=== PATIENT | male | born 1955 | race Caucasian/White ===

== ENCOUNTER 2018-03-31 09:00 | Inpatient (IN) | payer OTHER ==
[2018-04-07 10:46] LABS: PLATELET COUNT 275 10^3/uL (150-400)
--- NOTE | 2018-04-13 18:56 | GHP ---
DATE OF ADMISSION: 04/14/2018 HISTORY OF PRESENT ILLNESS: The patient is a 62-year-old male who presents with right knee pain, mal alignment, and instability. He has a history of a right ACL reconstruction back in 1988. Progressiv mk, his knee is feeling unstable, presents with more valgus alignment, and is giving out. He has la teral knee pain. His x-ray shows severe right knee tricompartment osteoarthritis, rhvv-uv-niss in th e lateral compartment, producing increased valgus alignment. He has 2 pieces of retained hardware in his right proximal tibia, a staple and a screw. For his combination of significant symptoms, includ ing his severe valgus malalignment with his arthritis, a right total knee arthroplasty is planned. PAST MEDICAL HISTORY: Remarkable for hypertension as well as elevation of cholesterol. His surgerie s include his right knee ACL reconstruction, left knee meniscal work. He had back surgery, a disk, b ack in 1991. He has had an esophageal dilatation. MEDS: Atorvastatin 10 mg p.o. daily, Bystolic 10 mg p.o. daily, ramipril 5 mg p.o. daily, and he use s supplements. SOCIAL HISTORY: He is a former smoker, but quit years ago. ALLERGIES: No known drug allergies. REVIEW OF SYSTEMS: Positive from a cardiac standpoint for elevation of cholesterol and hypertension. PHYSICAL EXAM: GENERAL: The patient is a well-developed, well-nourished male in no apparent distres s. HEAD AND NECK: Normocephalic, atraumatic. CHEST: Clear. CARDIOVASCULAR: Regular rate and rhy thm. ABDOMEN: Soft. NEUROLOGICAL: He is alert and oriented x3. EXTREMITIES: Examination of the right knee shows 10 degrees of increased valgus alignment, a moderate effusion. Positive Marshal carissa t. Mild pivot shift. No posterior sag. Positive anterior drawer. IMAGING: X-rays as described, show right knee severe tricompartment osteoarthritis, most severe in t he lateral compartment, which is bone to bone. There is decreased joint space, degenerative lipping, and subchondral sclerosis. IMPRESSION: Right knee tricompartment osteoarthritis with valgus malalignment. PLAN: Right total knee arthroplasty. Benefits and risks of surgery were reviewed with the patient. He understands that the risks include infection, damage to blood vessels and nerves, failure or loos ening of components, need for revision, blood clot in the leg or lungs, or bleeding and the need for transfusion. He has signed his consent form and wishes to proceed. /[id number]/MODL
[2018-04-14] MEDS ORDERED: ceFAZolin 1 GM/5 ML SYR ONE (08:08)
[2018-04-14] MEDS ORDERED: ceFAZolin 2 GM/DEXTROSE 100 ML IV ONE (08:29)
[2018-04-14] MEDS ORDERED: GABAPENTIN 300 MG CAP PO ONE (08:29)
[2018-04-14] MEDS ORDERED: ONDANSETRON 4 MG/2 ML VIAL IVP ONE (08:29)
[2018-04-14] MEDS ORDERED: DEXAMETHASONE 4 MG/ML VIAL IVP ONE (08:29)
[2018-04-14] MEDS ORDERED: ACETAMINOPHEN 325 MG TAB PO ONE (08:29)
[2018-04-14] MEDS ORDERED: FAMOTIDINE 20 MG TAB PO ONE (08:29)
[2018-04-14] MEDS ORDERED: LR 1,000 ML IV ONE (08:30)
[2018-04-14] MEDS ORDERED: LIDOCAINE 1% 2 ML INJ ID PRN (08:30)
--- NOTE | 2018-04-14 08:51 | PDANEPAE ---
ANE Past Medical History - Cardiovascular History Hx Hypertension: Yes Hx Arrhythmias: No Hx Chest Pain: No Hx Coronary Artery / Peripheral Vascular Disease: Yes Hx CHF / Valvular Disease: No Hx Palpitations: No Cardiovascular History Comment: CAD based on calcium score, no EKG within the past 2 years - Pulmonary History Hx COPD: No Hx Asthma/Reactive Airway Disease: No Hx Recent Upper Respiratory Infection: No Hx Oxygen in Use at Home: No Hx Sleep Apnea: No Sleep Apnea Screening Result - Last Documented: Positive Pulmonary History Comment: JABARI triggers - Neurologic History Hx Cerebrovascular Accident: No Hx Seizures: No Hx Dementia: No - Endocrine History Hx Diabetes: No - Renal History Hx Renal Disorders: No - Liver History Hx Hepatic Disorders: No - Neurological & Psychiatric Hx Hx Neurological and Psychiatric Disorders: No - Cancer History Hx Cancer: No - Congenital Disorder History Hx Congenital Disorders: No - GI History Hx Gastrointestinal Disorders: Yes Gastrointestinal History Comment: reflux. hx esophageal dillitation - Other Health History Other Health History: wears glasses. plantar fascititis - Chronic Pain History Chronic Pain: No - Surgical History Prior Surgeries: right knee rebuilt from ski injury. left scope. back surgery ANE Review of Systems Review of Systems: - Exercise capacity Exercise capacity: >=4 METS METS (RN): 4 METS ANE Patient History - Allergies Allergies/Adverse Reactions: No Known Allergies Allergy (Verified 03/28/18 10:12) - Home Medications Home medications: home medication list seen and reviewed Home Medications: Aspirin [Aspirin 81mg (*)] 81 mg PO HS 03/28/18 [Last Taken 04/07/18] Atorvastatin Calcium [Lipitor 10 mg (*)] 10 mg PO DAILY 03/28/18 [Last Taken 07/28 07:00] Cholecalciferol Vit D3 [Vitamin D3 (*)] 1,000 units PO DAILY 03/28/18 [Last Taken 04/07/18] Herbals/Supplements -Info Only 1 ea PO DAILY 03/28/18 [Last Taken 04/07/18] Nebivolol HCl [Bystolic] 10 mg PO DAILY 03/28/18 [Last Taken 04/14/18 07:00] Niacin [Niacin 500 mg (*)] 500 mg PO HS 03/28/18 [Last Taken 04/07/18] [place]-3 Fatty Acids [Fish Oil 1000 mg (*)] 1,000 mg PO DAILY 03/28/18 [Last Taken 04/07/18] Ramipril [Altace 5mg (*)] 10 mg PO DAILY 03/28/18 [Last Taken 04/13/18 07:00] - NPO status NPO Status: no food or drink >8 hours - Smoking Hx Smoking Status: Former smoker - Family Anes Hx Family Hx Anesthesia Complications: none ANE Labs/Vital Signs - Labs Result Diagrams: 04/07/18 10:06 - Vital Signs Vital Signs: reviewed preoperatively; see RN documention for details Height: 193.04 cm Weight: 89.811 kg ANE Physical Exam - ASA Status ASA Status: II ANE Anesthesia Plan Anesthesia Plan: general endotracheal anesthesia Regional Anesthesia: single shot NB
[2018-04-14] MEDS ORDERED: MIDAZOLAM 2 MG/2 ML VIAL IVP ONE (09:03)
--- NOTE | 2018-04-14 09:47 | PDHPUP ---
History & Physical Update H&P update statement: This history and physical update is based on an assessment of the patient which was completed after admission or registration (within 24 hours), but prior to the surgery/procedure. no change H&P update: no change in patient's condition since H&P completed (no change)
[2018-04-14] MEDS ORDERED: BUPIVACAINE/DEXTROSE 7.5MG/ML 2 ML SPINAL AMP SP ONE (09:50)
[2018-04-14] MEDS ORDERED: PROPOFOL/EMULSION 500 MG/50 ML BOTTLE IV ONE ×4 (09:50→11:38)
[2018-04-14] MEDS ORDERED: TRANEXAMIC ACID 1,000 MG in NS 100 ML IV ONE (10:45)
[2018-04-14] MEDS ORDERED: ePHEDrine SULFATE 25 MG/5 ML SYR ONE (10:45)
[2018-04-14] MEDS ORDERED: ROPIVACAINE 0.2% 80 MG, EPINEPHrine 0.2 MG, KETOROLAC TROMETHAMINE 30 MG in SYRINGE 0 ML IU ONE (10:45)
[2018-04-14] MEDS ORDERED: PHENYLEPHRINE HCL 100 MCG/ML SYR ONE ×2 (10:51→11:10)
[2018-04-14] MEDS ORDERED: POVIDONE-IODINE 20 ML in SODIUM CL IRRIG SOLUTION 500 ML IRR ONE (11:00)
[2018-04-14] MEDS ORDERED: ROPIVACAINE HCL 150 MG/30 ML INJ ONE (11:05)
[2018-04-14] MEDS ORDERED: ACETAMINOPHEN 500 MG TAB PO PRN (11:39)
[2018-04-14] MEDS ORDERED: HYDROmorphONE/DILAUDID 2 MG/ML INJ IVP PRN (11:39)
[2018-04-14] MEDS ORDERED: DEXAMETHASONE 4 MG/ML VIAL IVP PRN (11:39)
[2018-04-14] MEDS ORDERED: ALBUTEROL 3 ML DEYVIAL IH PRN (11:39)
[2018-04-14] MEDS ORDERED: ONDANSETRON 4 MG/2 ML VIAL IVP PRN ×2 (11:39→12:44)
[2018-04-14] MEDS ORDERED: NALOXONE HCL 0.4 MG/ML INJ IVP PRN (11:39)
[2018-04-14] MEDS ORDERED: LR 500 ML IV PRN (11:39)
[2018-04-14] MEDS ORDERED: PROMETHAZINE HCL 25 MG/ML INJ IVP PRN ×2 (11:39→12:44)
[2018-04-14] MEDS ORDERED: PHENYLEPHRINE HCL 100 MCG/ML SYR IVP PRN (11:39)
[2018-04-14] MEDS ORDERED: oxyCODONE IR 5 MG TAB PO PRN (11:39)
[2018-04-14] MEDS ORDERED: fentaNYL 100 MCG/2 ML INJ IVP PRN (11:39)
[2018-04-14] MEDS ORDERED: LABETALOL HCL 20 MG/4 ML INJ IVP PRN (11:39)
[2018-04-14] MEDS ORDERED: METOCLOPRAMIDE 10 MG/2 ML VIAL IVP PRN ×2 (11:39→12:44)
[2018-04-14] MEDS ORDERED: TEMAZEPAM 15 MG CAP PO PRN (12:44)
[2018-04-14] MEDS ORDERED: DIPHENOXYLATE/ATROPINE LOMOTIL 1 TAB PO PRN (12:44)
[2018-04-14] MEDS ORDERED: POLYETHYLENE GLYCOL 3350 17 GM PKT PO PRN (12:44)
[2018-04-14] MEDS ORDERED: LACTULOSE 20 GM/30 ML UDCUP PO PRN (12:44)
[2018-04-14] MEDS ORDERED: DIAZEPAM 5 MG TAB PO PRN (12:44)
[2018-04-14] MEDS ORDERED: ONDANSETRON DISINTEGRATING 4 MG TAB PO PRN (12:44)
[2018-04-14] MEDS ORDERED: MAGNESIUM HYDROXIDE 30 ML UDCUP PO PRN (12:44)
[2018-04-14] MEDS ORDERED: PROMETHAZINE HCL 25 MG SUPPR PR PRN (12:44)
[2018-04-14] MEDS ORDERED: BISACODYL 10 MG SUPP PR PRN (12:44)
[2018-04-14] MEDS ORDERED: diphenhydrAMINE 25 MG CAP PO PRN (12:44)
[2018-04-14] MEDS ORDERED: fentaNYL 100 MCG/2 ML INJ ONE (13:23)
[2018-04-14] MEDS: oxyCODONE IR 5 MG TAB PO PRN ×3 (13:57→21:59)
[2018-04-14] MEDS: CYCLOBENZAPRINE 10 MG TAB PO PRN (13:58)
[2018-04-14] MEDS: LR 1,000 ML IV SCH ×2 (14:02→23:08)
--- NOTE | 2018-04-14 14:16 | PDMN ---
Medical Necessity Medical necessity: [facility] S700 knee arthropalsty: R TKA, pt with PMHx HTN, elevated cholesterol. former smoker, anticipates > 2 MN ongoing med nec care.
--- NOTE | 2018-04-14 14:27 | POSTANESTH ---
Post Anesthetic Evaluation Cardiovascular Status: Normal, Stable Respiratory Status: Normal, Stable Level of Consciousness/Mental Status: Can Participate in Eval Pain Control: Adequate, Prn Tx Ordered Nausea/Vomiting Control: Adequate, Prn Tx Ordered Complications Possibly Related to Anesthesia: None Noted
--- NOTE | 2018-04-14 14:39 | GOP ---
DATE OF OPERATION: SURGEON: Burt Quezada MD ROLLER COASTER DESIGNER: IBAN ParraA, LSA. ANESTHESIA: Spinal. ANESTHESIOLOGIST: Gabby Webster MD. PREOPERATIVE DIAGNOSIS: Right knee osteoarthritis. POSTOPERATIVE DIAGNOSIS: Right knee osteoarthritis. PROCEDURE PERFORMED: Right total knee arthroplasty. FINDINGS: SPECIMENS: Include excised bone. ESTIMATED BLOOD LOSS: Less than 40 cc. INDICATIONS: The patient is a 62-year-old male who presents with a severely arthritic right knee, tr icompartment osteoarthritis with valgus malalignment [id number] throughout the lateral compartment. He has pain, swelling as well as a sense of instability. This knee has had prior surgery including an ACL reconstruction. He has had meniscal work as well. He does have some retained hardware, stap le and screw in the tibia. He has exhausted conservative measures and desires a more functional and pain-free knee. DESCRIPTION OF PROCEDURE: The patient was taken to the operating room, and in the sitting position Ezekiel Webster provided a spinal anesthetic. He was placed supine, administered IV sedation. He received 2 g of IV Ancef as well as tranexamic acid. I placed a roll towel beneath the right hip to stabilize a nd balance his rotation, a tourniquet was fit high on the right thigh and the right leg was thoroughl y prepped with chlorhexidine in the usual fashion. The knee was draped free. The leg was elevated, exsanguinated, the tourniquet inflated to 275 mmHg. He had a previous arthrotomy incision. I utiliz ed this incision, about 70% of it, then curved it a bit more midline and proximal. Dissection was ca rried down through subcutaneous tissue. I used a medial parapatellar arthrotomy. The patella was qu ite tethered down from his prior procedures. I did elevate enough soft tissue around the tubercle to gently invert the patella. I measured its thickness. I removed 9 mm of cartilage and bone, sized i t a 38, drilled peg holes and I found that the trial and the [place] patella reconstituted his patella r thickness of 24 mm. I removed any rimming osteophytes. The knee was then flexed. I drilled a pil ot hole in the distal femur. I placed an intramedullary guide criselda. I wanted to achieve a 5 degree v algus alignment. Placing the cutting block readily showed his deficiency in the lateral femoral cond yle. He also had a considerable flexion contracture of at least 10 degrees, so I tried a +2 cut, thi s barely skimmed the lateral condyle, so I used a +4 cut distally. I then sized the femur between an 8 and 9. I downsized to a [employer] 8, advanced it anteriorly to avoid notching and I completed my cuts of the femur and the size of the femoral component was a good fit. I then used a n extramedullary guide on the tibia, I dialed in the rotation posterior slope from a previous spacer block fransisca on the tibia. I judged my depth of cut and made a perpendicular tibial cut and sized this at a size 7. I then dialed in the rotation and completed the prep. This was a little bit more invo lved than usual. Because he had a retained screw and staple in the proximal tibia initially I did a gentle cruciate punch and I found that I contacted the screw, so this single screw was removed. I fo und that I came up against 1 of the parts of the staple, but it did not obstruct me completely seatin g the cruciate punch so the staple remained. All trial components were removed. I prepared all surf aces with jet lavage and all the components were cemented. Femur size 8 tibia, size 7, and a patella 38. I then did trial reductions. Because of the exaggerated valgus alignment that he presented in, he did have some medial instability including in flexion. There was enough instability with an appr opriate thickness liner that I moved to trial components with a more constrained post. I found that a size 10 cross-link polyethylene constrained articular insert was an excellent fit, allowed full ext ension, excellent rollback in flexion and controlled his cruciate stability very nicely. This liner insert was then placed in the tibial tray and I let down the tourniquet after about an hour and a rian f. I used Betadine rinse and jet lavage antibiotic rinse. Bleeding was minimal, he received a secon d dose of tranexamic acid. The arthrotomy was closed with interrupted [id number]-[id number] sutures of 0 M ersilene, subcutaneous tissue was closed with 2-0 Monocryl, and the skin was closed with jae. Th e wound was dressed with Betadine-soaked Adaptic, 4 x 4, sterile Webril, and a long-leg SITA stocking. There were no complications. DRAINS: None. COUNTS: All counts were correct and the patient was taken in stable condition to recovery. SUMMARY OF COMPONENTS: This is a [employer] Journey knee, Oxinium femur crosslink polyethylene liner. All components were cemented. Femur size 8, tibia size 7, patella 38 and the constrained ar ticular insert was 10 mm thick. My assistant hvac mechanic, Eulalio Baker, was a medical necessity for this total knee replacement. /[id number]/MODL
[2018-04-14] MEDS: ceFAZolin 2 GM/DEXTROSE 100 ML IV SCH (17:48)
[2018-04-14] MEDS: ACETAMINOPHEN 325 MG TAB PO SCH ×2 (17:49→23:08)
[2018-04-14] MEDS ORDERED: NIACIN 500 MG TAB PO SCH (21:00)
[2018-04-14] MEDS: FAMOTIDINE 20 MG TAB PO SCH (21:49)
[2018-04-14] MEDS: SENNOSIDES/DOCUSATE SODIUM TAB PO SCH (21:50)
[2018-04-14] MEDS: ASPIRIN 81 MG CHEWABLE TAB PO SCH (21:50)
[2018-04-15] MEDS: ceFAZolin 2 GM/DEXTROSE 100 ML IV SCH (02:11)
[2018-04-15] MEDS: ACETAMINOPHEN 325 MG TAB PO SCH ×2 (04:51→11:20)
[2018-04-15] MEDS: oxyCODONE IR 5 MG TAB PO PRN ×3 (04:52→11:20)
[2018-04-15 07:55] VITALS: BP 162/82
[2018-04-15] MEDS: ASPIRIN 81 MG CHEWABLE TAB PO SCH (08:03)
[2018-04-15] MEDS: FAMOTIDINE 20 MG TAB PO SCH (08:04)
[2018-04-15] MEDS: SENNOSIDES/DOCUSATE SODIUM TAB PO SCH (08:05)
--- NOTE | 2018-04-15 08:18 | SOAPPROG ---
SOAP Progress Note Assessment/Plan: Assessment: 04/15/18, POD#1 R TKA, pain controlled, Hct37, has been up, xray fine Plan: 04/15/18 08:15 d/c home after PT, celebrex, tyl, asa,oxy, has PT set up 1 week 04/15/18 08:18 Objective: Vital Signs Temp Pulse Resp BP Pulse Ox 36.3 C 64 14 162/82 H 95 04/15/18 07:53 04/15/18 08:04 04/15/18 07:53 04/15/18 08:04 04/15/18 07:53 Laboratory Results 04/15/18 04:55 04/14/18 04/15/18 04/16/18 05:59 05:59 05:59 Intake Total 2785 Output Total 2900 600 Balance -115 -600 ICD10 Worksheet Patient Problems: Problems Problem Status Onset Osteoarthritis of right knee Acute - ICD10 Problem Qualifiers (1) Osteoarthritis of right knee
[2018-04-15] MEDS ORDERED: ATORVASTATIN CALCIUM 10 MG TAB PO SCH (09:00)
[2018-04-15] MEDS ORDERED: OMEGA-3 FATTY ACIDS 1,000 MG CAP PO SCH (09:00)
[2018-04-15] MEDS ORDERED: NEBIVOLOL HCL 5 MG TAB PO SCH (09:00)
[2018-04-15] MEDS ORDERED: RAMIPRIL 5 MG CAP PO SCH (09:00)
[2018-04-15] MEDS ORDERED: CHOLECALCIFEROL VIT D3 1,000 UNITS TAB PO SCH (09:00)
[2018-04-15] MEDS: CYCLOBENZAPRINE 10 MG TAB PO PRN (11:20)
--- NOTE | 2018-04-15 11:35 | ASMTLACE ---
LACE Length of stay for Answers: 2 days current admission Acuity / Level of Answers: Yes Care: Did the patient have an inpatient admission? Comorbidities - select Answers: Coronary Artery Disease all that apply Other Notes: HTN # of Emergency department Answers: 0 visits in the last 6 months Score: 8 Date Signed: 04/15/2018 11:35 AM Electronically Signed By:HELEN Hamilton
--- NOTE | 2018-04-15 11:40 | ASMTCMCOM ---
CM Note CM Note Notes: Pt had planned OA of knee. PT and MD rec outpatient. No CM d/c needs identified. Date Signed: 04/15/2018 11:39 AM Electronically Signed By:HELEN Hamilton
== END 2018-04-15 11:52 | disposition home or self-care (01) | DRG 470 ==
LOC: F3N 04-14 08:05 → OBSVTOIN 04-14 08:05 → EDSTATUS 04-14 09:30 → F3N 04-14 13:38
PROVIDERS: ADMIT Orthopaedic Surgery; ATTEND Orthopaedic Surgery
PROC: 0SRC0J9 Replacement of Right Knee Joint with Synthetic Substitute, Cemented, Open Approach (ICD-10-PCS; principal; 2018-04-14 09:30)
DX: M17.11 Unilateral primary osteoarthritis, right knee (principal); I10 Essential (primary) hypertension; E78.00 Pure hypercholesterolemia, unspecified; G47.33 Obstructive sleep apnea (adult) (pediatric); I25.10 Atherosclerotic heart disease of native coronary artery without angina pectoris; Z87.891 Personal history of nicotine dependence
CPT/HCPCS: 97110-GP; 97116-GP; 97161-GP; 97530-GP; C1713; J0171; J0690; J1100; J1885; J2250; J2370; J2405; J2704; J2795; J3010